=== PATIENT | female | born 1960 | race Caucasian/White ===

== ENCOUNTER 2018-08-16 09:40 | Emergency (ER) | payer BC ==
[2018-08-16 09:49] VITALS: BP 131/74; PULSE 97; TEMP 98; BMI 19.5
[2018-08-16] MEDS ORDERED: guaiFENesin/CODEINE 10 ML UNIT-DOSE CUPS PO ONE (10:18)
[2018-08-16] MEDS ORDERED: guaiFENesin/CODEINE 5 ML UNIT-DOSE CUPS PO ONE (10:22)
--- NOTE | 2018-08-16 10:25 | PDOC ---
History of Present Illness - General Chief Complaint: Respiratory Stated Complaint: FLU LIKE SYMPTOMS Time Seen by Provider: 08/16/18 09:57 History Source: Patient Exam Limitations: No Limitations - History of Present Illness Initial Comments: 08/16/18 10:48 58-year-old female with no past medical history presents to ED with a painful dry hacking cough for the past week now causing discomfort with deep breathing and coughing. Patient denies fever, chills, sore throat, headache or recent travel recent illness. Timing/Duration: reports: week Severity: reports: mild Possible Cause: Yes: other Modifying Factors: improves with: coughing Associated Symptoms: reports: cough, muscle aches Past History - Travel Traveled outside of the country in the last 30 days: No - Past Medical History Allergies/Adverse Reactions: Allergies Allergy/AdvReac Type Severity Reaction Status Date / Time sulfamethoxazole Allergy Verified 08/16/18 09:48 [From Bactrim] trimethoprim [From Bactrim] Allergy Verified 08/16/18 09:48 Home Medications: Ambulatory Orders NK [No Known Home Medication] 06/09/16 - Suicide/Smoking/Psychosocial Hx Smoking History: Former smoker Have you smoked in the past 12 months: Yes Number of Cigarettes Smoked Daily: 3 Information on smoking cessation initiated: No Hx Alcohol Use: No Drug/Substance Use Hx: No Substance Use Type: None Patient Lives Alone: No Lives with/in: spouse/SO Review of Systems - Review of Systems Able to Perform ROS?: Yes Constitutional: No: Symptoms Reported HEENTM: No: Symptoms Reported Respiratory: Yes: Cough Cardiac (ROS): No: Chest Pain ABD/GI: No: Symptoms Reported : No: Symptoms Reported Musculoskeletal: Yes: Joint Pain Integumentary: No: Symptoms Reported Neurological: No: Symptoms reported Endocrine: No: Symptoms Reported Hematologic/Lymphatic: No: Symptoms Reported *Physical Exam - Vital Signs Last Vital Signs Temp Pulse Resp BP Pulse Ox 98 F 97 H 20 131/74 98 08/16/18 09:48 08/16/18 09:48 08/16/18 09:48 08/16/18 09:48 08/16/18 09:48 - Physical Exam General Appearance: Yes: Nourished, Appropriately Dressed. No: Apparent Distress HEENT: positive: EOMI, DOYLE, TMs Normal, Pharynx Normal. negative: Pale Conjunctivae Neck: positive: Supple Respiratory/Chest: positive: Chest Tender (bilateral rib pain), Lungs Clear, Normal Breath Sounds. negative: Respiratory Distress, Accessory Muscle Use Cardiovascular: positive: Regular Rhythm, Regular Rate. negative: Murmur Gastrointestinal/Abdominal: positive: Soft. negative: Tenderness Extremity: positive: Normal Capillary Refill. negative: Pedal Edema Integumentary: positive: Normal Color, Warm, Moist Neurologic: positive: Motor Strength 5/5 (ambulatory) Moderate Sedation - Procedure Monitoring Vital Signs: Procedure Monitoring Vital Signs Temperature 98 F 08/16/18 09:48 Pulse Rate 97 H 08/16/18 09:48 Respiratory Rate 20 08/16/18 09:48 Blood Pressure 131/74 08/16/18 09:48 O2 Sat by Pulse Oximetry (%) 98 08/16/18 09:48 Medical Decision Making - Medical Decision Making 08/16/18 10:28 CC: dry cough and muscle skeletal pain 1 week Exam: dieudonne chest pain with noted dry cough during my presence Plan: cxr, robutussin, and influenza Patient's chest x-ray with possible right lower lobe infiltrate. Patient be given prescription for azithromycin 5003 days. Patient also prescribed Robitussin-AC secondary to muscle spelled things due to excessive coughing *DC/Admit/Observation/Transfer Diagnosis at time of Disposition: Cough, Right lower lobe pneumonia - Discharge Dispostion Disposition: HOME Condition at time of disposition: Good - Referrals - Patient Instructions Printed Discharge Instructions: DI for Pneumonia -- Adult Additional Instructions: Please take medication as prescribed and use Robitussin-AC for cough but do not operate heavy machinery while taking it. Drink plenty of fluids and rest - Post Discharge Activity
== END 2018-08-16 11:00 | disposition home or self-care (01) ==
LOC: JER 09:40
DX: J18.9 Pneumonia, unspecified organism (principal); Z87.891 Personal history of nicotine dependence
CPT/HCPCS: 71046-TC-FY; 87804; 99281-25